=== PATIENT | female | born 1940 | race Caucasian/White ===

== ENCOUNTER → 2017-01-01 | Outpatient (CLI) | payer MEDICARE, OTHER ==
--- NOTE | 2017-01-01 14:33 | RAD ---
Thyroid ultrasound, 01/01/2017: History: Enlarged thyroid gland The left lobe of the gland measures 3.4 x 1.2 x 1.4 cm. No left thyroid mass is evident. The main portion of the right lobe of the gland measures 1.2 cm in width and 1.3 cm in AP diameter. There is a mass arising from the inferior plate of the right lobe of the gland with substernal extension. The length of the right lobe can therefore not be clearly measured. This mass measures at least 3 x 3 x 4 cm. It is oval shaped and appears to consist of cystic and solid components. It is best delineated in the longitudinal plane. Comparison of the current longitudinal image with a longitudinal image from the 01/27/2006 study shows no increase in size. This favors a benign etiology. No new right thyroid mass is seen. IMPRESSION: 1. 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 It appears to be unchanged in size since 2005 which would favor a benign etiology. 2. No new thyroid abnormality is detected.
== END | disposition home or self-care (01) ==
LOC: US 16:29
PROVIDERS: ATTEND Internal Medicine
DX: E01.0 Iodine-deficiency related diffuse (endemic) goiter (principal)
CPT/HCPCS: 76536

== ENCOUNTER 2021-01-13 15:57 | Emergency (ER) | payer MEDICARE, OTHER ==
[~2021-01-13] VITALS: Ht 152.4 cm; Wt 45.0 kg
[~2021-01-13 15:57] MED LIST: ASCO-78 PO; CHOL10003 PO; CYAN-25 PO; DIGO125T3 PO; FOLI1TAB16 PO; LORA0.5T PO; MAGN400C PO; OMEG1CAP6 PO; TRAV5DRO EACHEYE; UBID200C27 PO; VALS80TA3 PO; VIT1TABL34 PO; VITA1TAB19 PO; WARF5TAB2 PO
[2021-01-13 16:00] VITALS: BP 157/77
--- NOTE | 2021-01-13 16:55 | PHYS DOC ---
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 fib who presents today complaining of a possible accidental ingestion of nail romanian remover. Patient states she was eating a donut, she states she needed a sip of water and accidentally grabbed the nail romanian remover she took a sip, she states she realized she took nail romanian remover and spit. She states she never swallowed it. She states she has rinsed her mouth several times. Review of Systems: Review of Systems: Constitutional: Denies fever or chills. [] Eyes: Denies change in visual acuity. [] HENT: Reports accidental ingestion of nail romanian remover. Denies nasal congestion or sore throat. [] Respiratory: Denies cough or shortness of breath. [] Cardiovascular: Denies chest pain or edema. [] GI: Denies abdominal pain, nausea, vomiting, bloody stools or diarrhea. [] : Denies dysuria. [] Musculoskeletal: Denies back pain or joint pain. [] Integument: Denies rash. [] Neurologic: Denies headache, focal weakness or sensory changes. [] [] Psychiatric: Denies depression or anxiety. [] Heart Score: C/O Chest Pain: N/A Risk Factors: Risk Factors: DM, Current or recent (<one month) smoker, HTN, HLP, family history of CAD, obesity. Risk Scores: Score 0 - 3: 2.5% MACE over next 6 weeks - Discharge Home Score 4 - 6: 20.3% MACE over next 6 weeks - Admit for Clinical Observation Score 7 - 10: 72.7% MACE over next 6 weeks - Early Invasive Strategies Allergies: Allergies: Allergies Coded Allergies Type Severity Reaction Last Updated Verified Penicillins Allergy Intermediate 04/22/17 Yes Physical Exam: PE: Constitutional: Well developed, well nourished, no acute distress, non-toxic appearance. [] HENT: Normocephalic, atraumatic, bilateral external ears normal, oropharynx moist, no oral exudates, nose normal. [] Eyes: PERRLA, EOMI, conjunctiva normal, no discharge. [] Neck: Normal range of motion, no tenderness, supple, no stridor. [] Cardiovascular:Heart rate regular rhythm, no murmur [] Lungs & Thorax: Bilateral breath sounds clear to auscultation [] Abdomen: Bowel sounds normal, soft, no tenderness, no masses, no pulsatile masses. [] Skin: Warm, dry, no erythema, no rash. [] Back: No tenderness, no CVA tenderness. [] Extremities: No tenderness, no cyanosis, no clubbing, ROM intact, no edema. [] Neurologic: Alert and oriented X 3, normal motor function, normal sensory function, no focal deficits noted. [] Psychologic: Affect normal, judgement normal, mood normal. [] Current Patient Data: Vital Signs: Vital Signs Date Time Temp Pulse Resp B/P (MAP) Pulse Ox O2 Delivery O2 Flow Rate FiO2 01/13/21 16:00 98.9 86 16 157/77 (103) 95 Room Air 98.9 EKG: EKG: [] Radiology/Procedures: Radiology/Procedures: [] Course & Med Decision Making: Course & Med Decision Making Pertinent Labs and Imaging studies reviewed. (See chart for details) This is a 80-year-old female patient who presents to the ED today after accidentally testing but not swallowing nail romanian remover. Patient has no s ymptoms. [id number] Spoke to poison control, they requested we give her a glass of milk or water and she can go home. Dragon Disclaimer: Ulises Disclaimer: This electronic medical record was generated, in whole or in part, using a voice recognition dictation system. Departure Departure Impression: Primary Impression: Accidental ingestion of substance Qualified Codes: T65.91XA - Toxic effect of unspecified substance, accidental (unintentional), initial encounter Disposition: HOME / SELF CARE / HOMELESS Condition: STABLE Referrals: NO PCP (PCP) follow up with your doctor next week Additional Instructions: You were evaluated in the emergency room, please follow-up with your primary care doctor next week. You have any accidental ingestion please call consults Poison control at [phone] SHELLIE [employer] Jan 13, 2021 16:55
== END 2021-01-13 17:12 | disposition home or self-care (01) ==
LOC: ER 15:57
DX: T52.91XA Toxic effect of unspecified organic solvent, accidental (unintentional), initial encounter (principal); I48.91 Unspecified atrial fibrillation; Z88.0 Allergy status to penicillin; Y92.89 Other specified places as the place of occurrence of the external cause
CPT/HCPCS: 99281